=== PATIENT | male | born 1940 ===

== ENCOUNTER 2022-12-08 11:41 | Inpatient (IN) | payer OTHER ==
[~2022-12-08] VITALS: Ht 160 cm; Wt 71.7 kg
[2022-12-08] MEDS ORDERED: GLIPIZIDE XL10 MG PO (12:50)
[2022-12-08] MEDS ORDERED: ZESTRIL20 MG PO (12:50)
[2022-12-08] MEDS ORDERED: SYNTH PO (12:51)
[2022-12-08] MEDS ORDERED: LIPIT PO (12:51)
[2022-12-13] MEDS ORDERED: ATORVASTATIN CA40 MG (11:11)
[2022-12-13] MEDS ORDERED: SYNTHROID100 MCG (11:12)
[2022-12-15] MEDS ORDERED: INTEGRA PLUS C1 EACH PO (06:40)
[2022-12-15] MEDS ORDERED: BACTRIM DS TAB1 EACH PO (06:40)
[2022-12-15] MEDS ORDERED: OXYC1TAB9 PO (06:40)
[2022-12-15] MEDS ORDERED: XARELTO10 MG PO (06:40)
== END 2022-12-15 14:17 | DRG 470 ==
LOC: O/R 12-13 06:00 → SURG 12-13 11:45
PROVIDERS: ADMIT Orthopaedic Surgery Sports Medicine; ATTEND Orthopaedic Surgery Sports Medicine
PROC: 0SRD0J9 Replacement of Left Knee Joint with Synthetic Substitute, Cemented, Open Approach (ICD-10-PCS; principal; 2022-12-13 14:00)
DX: M17.12 Unilateral primary osteoarthritis, left knee (principal); I10 Essential (primary) hypertension; E11.9 Type 2 diabetes mellitus without complications; Z96.652 Presence of left artificial knee joint; Z20.822 Contact with and (suspected) exposure to COVID-19